=== PATIENT | female | born 1970 | race Caucasian/White ===

== ENCOUNTER 2017-09-30 14:39 | Emergency (ER) | payer OTHER ==
[~2017-09-30] VITALS: Ht 165.1 cm; Wt 110.2 kg
[~2017-09-30 14:39] MED LIST: ASP81EC PO; BLAC540C3 PO; CARV3.1240 PO; FERR325T50 PO; FURO40TA4 PO; HYDR-531 PO; LISI40TA PO; LORA-352 PO; LOSA100T27 PO; METF-489 PO; OME20T PO; OMEG100078 PO; POT10T PO; TIZA4TAB9 PO
[2017-09-30 15:31] LABS: Basophils # (auto) 0.1 uL; Basophils % (auto) 0.4 % (0.0-2.0); Nucleated Red Blood Cells % 0.1 %
[2017-09-30 15:33] LABS: Eosinophils # (auto) 0.4 uL; Eosinophils % (auto) 2.8 % (0.0-7.0); Hematocrit 39.8 % (36.0-46.0); Hemoglobin 13.1 g/dL (12.2-16.2); Lymphocytes # (auto) 2.9 uL; Lymphocytes % (auto) 20.9 % (10.0-50.0); Mean Corpuscular Hemoglobin 27.2 pg (28.0-32.0); Mean Corpuscular Hgb Conc. 32.9 g/dL (32.0-36.0); Mean Corpuscular Volume 82.6 fL (80.0-100.0); Monocytes # (auto) 0.8 uL; Monocytes % (auto) 5.5 % (0.0-12.0); Neutrophils # (auto) 9.8 uL; Neutrophils % (auto) 70.4 % (37.0-80.0); Platelet Count (auto) 365 10^3/uL (140-450); Red Blood Cells 4.81 10^6/uL (4.0-5.20); Red Cell Distribution Width 15.9 % (11.8-14.3); White Blood Cell 13.9 10^3/uL (4.4-10.8)
[2017-09-30 15:42] LABS: Albumin 3.6 g/dL (3.4-5.0); BUN/Creatinine Ratio 22.3; Bilirubin, Total 0.3 mg/dL (0.2-1.0); Potassium 3.2 mmol/L (3.5-5.1); Total Protein 8.2 g/dL (6.4-8.2)
[2017-09-30] MEDS ORDERED: POTASSIUM EFFERVESENT TAB 25 MEQ PO ONE (16:00)
[2017-09-30 18:13] VITALS: BP 151/85
== END 2017-09-30 18:24 | disposition home or self-care (01) ==
LOC: ER 14:39
DX: E87.6 Hypokalemia (principal); N39.0 Urinary tract infection, site not specified; I10 Essential (primary) hypertension; J44.9 Chronic obstructive pulmonary disease, unspecified; E11.9 Type 2 diabetes mellitus without complications; E78.5 Hyperlipidemia, unspecified; E07.9 Disorder of thyroid, unspecified; Z90.49 Acquired absence of other specified parts of digestive tract; Z90.710 Acquired absence of both cervix and uterus; Z87.891 Personal history of nicotine dependence; Z79.82 Long term (current) use of aspirin; Z79.899 Other long term (current) drug therapy
CPT/HCPCS: 36415; 70450; 80053; 81002; 85025

== ENCOUNTER 2018-03-05 15:53 | Emergency (ER) | payer MEDICAID, OTHER ==
[~2018-03-05] VITALS: Ht 167.6 cm; Wt 99.8 kg
[~2018-03-05 15:53] MED LIST changes: +LOSA-49 PO; -LOSA100T27 PO
[2018-03-05 17:08] VITALS: BP 160/96
== END 2018-03-05 17:18 | disposition home or self-care (01) ==
LOC: EDBD 15:53 → ER 16:00
DX: S16.1XXA Strain of muscle, fascia and tendon at neck level, initial encounter (principal); J44.9 Chronic obstructive pulmonary disease, unspecified; E11.9 Type 2 diabetes mellitus without complications; E78.5 Hyperlipidemia, unspecified; I10 Essential (primary) hypertension; E07.9 Disorder of thyroid, unspecified; Z79.82 Long term (current) use of aspirin; Z79.899 Other long term (current) drug therapy; Z90.49 Acquired absence of other specified parts of digestive tract; Z90.710 Acquired absence of both cervix and uterus; V49.59XA Passenger injured in collision with other motor vehicles in traffic accident, initial encounter; Y93.89 Activity, other specified; Y99.8 Other external cause status; Y92.488 Other paved roadways as the place of occurrence of the external cause
CPT/HCPCS: 70450; 72125

== ENCOUNTER 2018-09-10 07:56 | Emergency (ER) | payer MEDICAID ==
[~2018-09-10] VITALS: Ht 165.1 cm; Wt 102.1 kg
[~2018-09-10 07:56] MED LIST changes: +LOSA-39 PO; -LOSA-49 PO
[2018-09-10 08:33] LABS: Basophils # (auto) 0 uL; Eosinophils # (auto) 0.4 uL; Eosinophils % (auto) 4.8 % (0.0-7.0); Monocytes # (auto) 0.4 uL; Nucleated Red Blood Cells % 0.1 %
[2018-09-10 08:34] LABS: Basophils % (auto) 0.4 % (0.0-2.0); Hematocrit 36.3 % (36.0-46.0); Hemoglobin 11.8 g/dL (12.2-16.2); Lymphocytes # (auto) 2.2 uL; Lymphocytes % (auto) 24.9 % (10.0-50.0); Mean Corpuscular Hemoglobin 27.2 pg (28.0-32.0); Mean Corpuscular Hgb Conc. 32.6 g/dL (32.0-36.0); Mean Corpuscular Volume 83.4 fL (80.0-100.0); Monocytes % (auto) 4.4 % (0.0-12.0); Neutrophils # (auto) 5.8 uL; Neutrophils % (auto) 65.5 % (37.0-80.0); Platelet Count (auto) 352 10^3/uL (140-450); Red Blood Cells 4.36 10^6/uL (4.0-5.20); Red Cell Distribution Width 17.3 % (11.8-14.3); White Blood Cell 8.9 10^3/uL (4.4-10.8)
[2018-09-10 08:40] LABS: Albumin 3.4 g/dL (3.4-5.0); Anion Gap 11 (5-15); Blood Urea Nitrogen 8 mg/dL (7-18); Calcium 9.5 mg/dL (8.5-10.1); Carbon Dioxide 34 mmol/L (21-32); Chloride 95 mmol/L (98-107); Glucose 143 mg/dL (74-106); Potassium 3.4 mmol/L (3.5-5.1); Sodium 140 mmol/L (136-145)
[2018-09-10 08:42] LABS: Alanine Aminotransferase 20 U/L (13-56); Aspartate Aminotransferase 12 U/L (15-37); BUN/Creatinine Ratio 9.6; GFR African American 95 mL/min; GFR Non-African American 78 mL/min
[2018-09-10 08:46] LABS: Alkaline Phosphatase 106 U/L (45-117); Bilirubin, Total 0.2 mg/dL (0.2-1.0); Total Protein 7.2 g/dL (6.4-8.2)
[2018-09-10 09:07] LABS: Urine Bacteria FEW /hpf (None Seen); Urine Blood Negative /uL (Negative); Urine Specific Gravity 1.004 (1.001-1.035); Urine WBC 2 /hpf (0 - 5)
[2018-09-10] MEDS ORDERED: SODIUM CHLORIDE 0.9% 1,000 ML IV ONE ×2 (10:10)
[2018-09-10 12:42] VITALS: BP 113/84
[2018-09-10] MEDS ORDERED: HYDROcodone-ACET 7.5/325MG TAB PO ONE (12:45)
[2018-09-10] MEDS ORDERED: POTASSIUM EFFERVESENT TAB 25 MEQ PO ONE (13:00)
== END 2018-09-10 13:45 | disposition home or self-care (01) ==
LOC: ER 07:56
DX: I10 Essential (primary) hypertension (principal); J44.9 Chronic obstructive pulmonary disease, unspecified; E11.9 Type 2 diabetes mellitus without complications; E78.5 Hyperlipidemia, unspecified; E07.9 Disorder of thyroid, unspecified; Z90.49 Acquired absence of other specified parts of digestive tract; Z79.82 Long term (current) use of aspirin; Z79.899 Other long term (current) drug therapy; Z90.710 Acquired absence of both cervix and uterus; Z98.51 Tubal ligation status
CPT/HCPCS: 36415; 70450; 71045; 80053; 81001; 82962; 84484; 85025; 93005; 96360; 96361; 99284; J7030

== ENCOUNTER 2019-02-23 14:28 | Emergency (ER) | payer MEDICAID ==
[~2019-02-23] VITALS: Ht 165.1 cm; Wt 113.4 kg
[2019-02-23 14:50] VITALS: BP 143/95
== END 2019-02-23 15:05 | disposition left against medical advice (07) ==
LOC: ER 14:38
DX: R04.0 Epistaxis (principal); Z53.21 Procedure and treatment not carried out due to patient leaving prior to being seen by health care provider

== ENCOUNTER 2020-05-12 09:54 | Inpatient (IN) | payer MEDICAID ==
[~2020-05-12] VITALS: Ht 162.6 cm; Wt 111.7 kg
[~2020-05-12 09:54] MED LIST changes: -ASP81EC PO; +ASPI-394 PO; -LISI40TA PO; +LISI40TA11 PO
[2020-05-12] MEDS ORDERED: amLODIPine BESYLATE 5 MG TAB PO ONE (10:15)
[2020-05-12 10:42] LABS: Basophils # (auto) 0 10 ^3/uL (0-0.2); Basophils % (auto) 0.2 % (0.0-2.0); Eosinophils # (auto) 0.3 10 ^3/uL (0-0.8); Eosinophils % (auto) 2.4 % (0.0-7.0); Hematocrit 36.4 % (36.0-46.0); Hemoglobin 11.9 g/dL (12.2-16.2); Lymphocytes # (auto) 1.5 10 ^3/uL (0.4-5.4); Lymphocytes % (auto) 11.9 % (10.0-50.0); Mean Corpuscular Hemoglobin 26.8 pg (28.0-32.0); Mean Corpuscular Hgb Conc. 32.7 g/dL (32.0-36.0); Mean Corpuscular Volume 81.8 fL (80.0-100.0); Monocytes # (auto) 0.5 10 ^3/uL (0-1.3); Monocytes % (auto) 3.8 % (0.0-12.0); Neutrophils # (auto) 10.2 10 ^3/uL (1.6-8.6); Neutrophils % (auto) 81.7 % (37.0-80.0); Platelet Count (auto) 457 10^3/uL (140-450); Red Blood Cells 4.45 10^6/uL (4.0-5.20); Red Cell Distribution Width 16.6 % (11.8-14.3); White Blood Cell 12.5 10^3/uL (4.4-10.8)
[2020-05-12 11:07] LABS: Alanine Aminotransferase 27 U/L (13-56); Albumin 3.7 g/dL (3.4-5.0); Anion Gap 6 (5-15); Blood Urea Nitrogen 12 mg/dL (7-18); Calcium 9.7 mg/dL (8.5-10.1); Carbon Dioxide 34 mmol/L (21-32); Chloride 101 mmol/L (98-107); Glucose 152 mg/dL (74-106); Potassium 3.5 mmol/L (3.5-5.1); Sodium 141 mmol/L (136-145)
[2020-05-12 11:12] LABS: Alkaline Phosphatase 106 U/L (45-117); Aspartate Aminotransferase 14 U/L (15-37); Bilirubin, Total 0.2 mg/dL (0.2-1.0); GFR African American 137 mL/min; GFR Non-African American 113 mL/min; Total Protein 8.4 g/dL (6.4-8.2)
[2020-05-12] MEDS ORDERED: HYDROcodone-ACET 10/325MG TAB PO ONE ×2 (11:15)
[2020-05-12] MEDS ORDERED: ONDANSETRON HCL 4 MG/2 ML VIAL IV ONE ×2 (11:15→14:00)
[2020-05-12 11:20] LABS: Urine Bacteria NONE SEEN /hpf (None Seen); Urine Blood Negative /uL (Negative); Urine Specific Gravity 1.016 (1.001-1.035); Urine WBC <1 /hpf (0 - 5)
[2020-05-12] MEDS ORDERED: LABETALOL HCL 5 MG/ML 4ML SYRINGE IV ONE (11:45)
[2020-05-12] MEDS ORDERED: hydrALAZINE HCL 20 MG/ML VL IV ONE (13:00)
[2020-05-12] MEDS ORDERED: traMADol HCL 50 MG TAB PO ONE (14:00)
[2020-05-12] MEDS ORDERED: PROMETHAZINE HCL 25 MG/ML 1ML IV ONE (14:45)
[2020-05-12] MEDS ORDERED: HYDROmorphone HCL 2 MG/ML VL IV ONE (14:45)
[2020-05-12] MEDS ORDERED: MORPHINE SULF INJ 2 MG/ML SYRINGE 1ML IV PRN (15:15)
[2020-05-12] MEDS ORDERED: DEXTROSE (50%) 50ML SYRG IV PRN (15:15)
[2020-05-12] MEDS ORDERED: NITROGLYCERIN 0.4 MG SL TAB SL PRN (15:15)
[2020-05-12] MEDS ORDERED: hydrALAZINE HCL 20 MG/ML VL IV PRN (15:15)
[2020-05-12] MEDS ORDERED: ENALAPRILAT 1.25 MG/ML-1ML VIAL IV PRN (16:30)
[2020-05-12] MEDS ORDERED: CARVEDILOL 3.125 MG TAB PO ONE (16:30)
[2020-05-12] MEDS: ACCU-CHEK COMFORT CURVE STRIP VI SCH ×2 (17:14→21:43)
[2020-05-12] MEDS: InsuLIN REG 1unit/0.01ml Soln (100units/ml) SC SCH ×2 (17:23→21:47)
[2020-05-12] MEDS ORDERED: HYDROcodone-ACET 10/325MG TAB PO SCH (18:00)
[2020-05-12] MEDS ORDERED: IBUPROFEN 600 MG TAB PO ONE (18:30)
[2020-05-12] MEDS ORDERED: MORPHINE SULF INJ 2 MG/ML SYRINGE 1ML IV ONE (18:30)
[2020-05-12] MEDS: CARVEDILOL 3.125 MG TAB PO SCH (21:00)
[2020-05-12] MEDS ORDERED: ONDA-144 PO (21:27)
[2020-05-12] MEDS ORDERED: HYDR25TA4 PO (21:27)
[2020-05-12] MEDS ORDERED: LOSA25TA38 PO (21:27)
[2020-05-12] MEDS ORDERED: CLON0.1T PO (21:27)
[2020-05-12] MEDS ORDERED: EMPA1TAB PO (21:27)
[2020-05-12] MEDS ORDERED: TIOT1AER IN (21:27)
[2020-05-12] MEDS ORDERED: PERCOT PO (21:27)
[2020-05-12] MEDS ORDERED: LEVO175T66 PO (21:27)
[2020-05-12] MEDS ORDERED: ALBU2TAB4 IN (21:27)
[2020-05-12] MEDS ORDERED: PAR20T PO (21:27)
[2020-05-12] MEDS ORDERED: ATO40T PO (21:27)
[2020-05-12] MEDS ORDERED: FLU220IH INH (21:27)
[2020-05-12 22:05] VITALS: BP 145/96
[2020-05-12] MEDS: cloNIDine HCL 0.1 MG TAB PO SCH (23:26)
[2020-05-12] MEDS: HYDROcodone-ACET 10/325MG TAB PO PRN (23:27)
[2020-05-12] MEDS: ONDANSETRON HCL 4 MG/2 ML VIAL IV PRN (23:27)
[2020-05-13 04:14] VITALS: BP 152/90
[2020-05-13 05:00] VITALS: BP 152/90
[2020-05-13] MEDS: ACCU-CHEK COMFORT CURVE STRIP VI SCH ×3 (06:28→17:01)
[2020-05-13] MEDS: ONDANSETRON HCL 4 MG/2 ML VIAL IV PRN ×2 (06:29→15:32)
[2020-05-13] MEDS: HYDROcodone-ACET 10/325MG TAB PO PRN ×2 (06:29→15:32)
[2020-05-13] MEDS: InsuLIN REG 1unit/0.01ml Soln (100units/ml) SC SCH ×3 (06:33→17:11)
[2020-05-13] MEDS: cloNIDine HCL 0.1 MG TAB PO SCH (08:44)
[2020-05-13 08:45] VITALS: BP 171/103
[2020-05-13] MEDS: CARVEDILOL 3.125 MG TAB PO SCH (08:46)
[2020-05-13] MEDS ORDERED: IBUPROFEN 800 MG TAB PO ONE (09:45)
[2020-05-13] MEDS ORDERED: MORPHINE SULF INJ 2 MG/ML SYRINGE 1ML IV ONE (09:45)
[2020-05-13] MEDS ORDERED: ATORVASTATIN 20 MG TAB PO SCH (10:00)
[2020-05-13] MEDS ORDERED: FERROUS SULFATE 325 MG TAB PO SCH (10:00)
[2020-05-13] MEDS ORDERED: LOSARTAN POTASSIUM 50 MG TAB PO SCH (10:00)
[2020-05-13] MEDS ORDERED: ASPirin 81 mg TAB PO SCH (10:00)
[2020-05-13] MEDS ORDERED: amLODIPine BESYLATE 5 MG TAB PO SCH (10:00)
[2020-05-13 11:54] VITALS: BP_SYST 145; BP_SYST 151; BP_DIAS 96; BP_DIAS 99
[2020-05-13 15:35] VITALS: BP 119/73
[2020-05-13] MEDS ORDERED: LEVOTHYROXINE SODIUM 50 MCG TAB PO SCH (18:00)
[2020-05-13] MEDS ORDERED: AML5T PO (18:07)
[2020-05-13] MEDS ORDERED: IBUP800T26 PO (18:07)
[2020-05-13] MEDS ORDERED: CARV6.25 PO (18:07)
[2020-05-13 18:16] VITALS: BP 147/95
== END 2020-05-13 19:20 | disposition home or self-care (01) | DRG 199 ==
LOC: ER 09:54 → EDBD 09:54 → TELE 15:35 → TELE-WESTW 20:20 → TELE-EAST 05-13 03:35
PROVIDERS: ADMIT Internal Medicine; ATTEND Internal Medicine
DX: I16.0 Hypertensive urgency (principal); U07.1 COVID-19; I10 Essential (primary) hypertension; E78.5 Hyperlipidemia, unspecified; J44.9 Chronic obstructive pulmonary disease, unspecified; F32.9 Major depressive disorder, single episode, unspecified; K21.9 Gastro-esophageal reflux disease without esophagitis; E03.9 Hypothyroidism, unspecified; E11.9 Type 2 diabetes mellitus without complications; D50.9 Iron deficiency anemia, unspecified; Z82.49 Family history of ischemic heart disease and other diseases of the circulatory system; Z79.4 Long term (current) use of insulin; Z90.710 Acquired absence of both cervix and uterus; Z83.3 Family history of diabetes mellitus; Z90.49 Acquired absence of other specified parts of digestive tract; Z98.51 Tubal ligation status
CPT/HCPCS: 36415; 70450; 71045; 80053; 81001; 82962; 84484; 85025; 87426; 93005; 96374; 96375; 96376; 99291; G0378; J1815; J2405

== ENCOUNTER 2021-07-09 07:06 | Emergency (ER) | payer MEDICAID ==
[~2021-07-09] VITALS: Ht 165.1 cm; Wt 113.4 kg
[2021-07-09 07:06] VITALS: BP 138/81
[~2021-07-09 07:06] MED LIST changes: +ALBU2TAB4 IN; +AML5T PO; +ATO40T PO; -BLAC540C3 PO; -CARV3.1240 PO; +CARV6.25 PO; +CLON0.1T PO; +EMPA1TAB PO; +FLU220IH INH; +IBUP800T26 PO; +LEVO175T66 PO; -LISI40TA11 PO; -LORA-352 PO; +LORA10TA6 PO; +ONDA-144 PO; +PAR20T PO; +PERCOT PO; +TIOT1AER IN
[2021-07-09] MEDS ORDERED: IPRATROPIUM BROM 0.5 MG/2.5ML INH SOL NEB ONE ×2 (07:15→07:30)
[2021-07-09] MEDS ORDERED: ALBUTEROL SULF 2.5 MG/0.5ML(0.5%) NEB SOLN NEB ONE ×2 (07:15→07:30)
[2021-07-09] MEDS ORDERED: methylPREDNISolone SOD SUCC 125 MG/2 ML VL IM ONE (07:30)
== END 2021-07-09 08:28 | disposition home or self-care (01) ==
LOC: ER 07:06
DX: J45.901 Unspecified asthma with (acute) exacerbation (principal); Z87.891 Personal history of nicotine dependence
CPT/HCPCS: 94640; 96372; 99283; J2930; J7644

== ENCOUNTER 2022-01-31 18:24 | Inpatient (IN) | payer MEDICAID ==
[~2022-01-31] VITALS: Ht 165.1 cm; Wt 93.0 kg
[2022-01-31] MEDS ORDERED: ALBUTEROL SULF 2.5 MG/0.5ML(0.5%) NEB SOLN NEB ONE (20:30)
[2022-01-31] MEDS ORDERED: OSELTAMIVIR 75 MG CAP PO ONE (20:30)
[2022-01-31] MEDS ORDERED: DexAMETHasone SOD PHOS 10MG/1ML VIAL INJ IV ONE (20:30)
[2022-01-31] MEDS ORDERED: LACTATED RINGER'S 1,000 ML IV ONE (20:30)
[2022-01-31] MEDS ORDERED: AZITHROMYCIN 500MG/ 250ML 250 ML IV ONE (20:30)
[2022-01-31] MEDS ORDERED: ALBUTEROL MEDNEB 2.5 mg/3ml NEB ONE ×2 (20:41)
[2022-01-31 21:13] LABS: Basophils # (auto) 0 10 ^3/uL (0-0.2); Eosinophils # (auto) 0.1 10 ^3/uL (0-0.8); Eosinophils % (auto) 0.8 % (0.0-7.0); Hemoglobin 11.9 g/dL (12.2-16.2); Lymphocytes # (auto) 0.9 10 ^3/uL (0.4-5.4); Red Cell Distribution Width 16.8 % (11.8-14.3)
[2022-01-31 21:14] LABS: Basophils % (auto) 0.4 % (0.0-2.0); Hematocrit 36.8 % (36.0-46.0); Lymphocytes % (auto) 12.7 % (10.0-50.0); Mean Corpuscular Hemoglobin 26.6 pg (28.0-32.0); Mean Corpuscular Hgb Conc. 32.3 g/dL (32.0-36.0); Mean Corpuscular Volume 82.3 fL (80.0-100.0); Monocytes # (auto) 0.7 10 ^3/uL (0-1.3); Monocytes % (auto) 9.3 % (0.0-12.0); Neutrophils # (auto) 5.7 10 ^3/uL (1.6-8.6); Neutrophils % (auto) 76.8 % (37.0-80.0); Red Blood Cells 4.48 10^6/uL (4.0-5.20); White Blood Cell 7.4 10^3/uL (4.4-10.8)
[2022-01-31 21:30] LABS: INR 1.02 (0.9-1.15); Potassium 4.3 mmol/L (3.5-5.1)
[2022-01-31 21:42] LABS: Albumin 3.7 g/dL (3.4-5.0); BUN/Creatinine Ratio 17.9; Bilirubin, Total 0.3 mg/dL (0.2-1.0); Calcium 9.4 mg/dL (8.5-10.1); Magnesium 2.1 mg/dL (1.6-2.6); Total Protein 7.2 g/dL (6.4-8.2)
[2022-01-31 22:39] LABS: Urine Blood Negative /uL (Negative); Urine Specific Gravity 1.014 (1.001-1.035)
[2022-01-31 23:03] LABS: Urine Bacteria FEW /hpf (None Seen)
[2022-02-01] VITALS: BP 129/69
[2022-02-01] MEDS ORDERED: ONDANSETRON HCL 4 MG/2 ML VIAL IV PRN (00:15)
[2022-02-01] MEDS ORDERED: TEMAZEPAM 15 MG CAP PO PRN (00:15)
[2022-02-01] MEDS ORDERED: ACETAMINOPHEN 500 MG TAB PO PRN (00:15)
[2022-02-01] MEDS ORDERED: ALBUTEROL SULF HFA 90MCG INH 200DOSE IN PRN (00:15)
[2022-02-01] MEDS ORDERED: DOCUSATE SOD 100 MG CAP PO PRN (00:15)
[2022-02-01] MEDS: DOXYCYCLINE 100 MG TAB/CAP PO SCH ×3 (01:48→22:17)
[2022-02-01] MEDS: SODIUM CHLORIDE 0.9% 1,000 ML IV SCH ×2 (01:48→17:13)
[2022-02-01 05:36] LABS: Basophils # (auto) 0 10 ^3/uL (0-0.2); Eosinophils # (auto) 0 10 ^3/uL (0-0.8); Eosinophils % (auto) 0.1 % (0.0-7.0); Hematocrit 37.9 % (36.0-46.0); Lymphocytes # (auto) 0.7 10 ^3/uL (0.4-5.4); Monocytes # (auto) 0.2 10 ^3/uL (0-1.3); Nucleated Red Blood Cells % 0.1 %
[2022-02-01 05:40] LABS: Basophils % (auto) 0.2 % (0.0-2.0); Lymphocytes % (auto) 11.5 % (10.0-50.0); Mean Corpuscular Hemoglobin 26.1 pg (28.0-32.0); Mean Corpuscular Hgb Conc. 31.7 g/dL (32.0-36.0); Mean Corpuscular Volume 82.3 fL (80.0-100.0); Monocytes % (auto) 3.3 % (0.0-12.0); Neutrophils # (auto) 5.4 10 ^3/uL (1.6-8.6); Neutrophils % (auto) 84.9 % (37.0-80.0); Red Cell Distribution Width 16.7 % (11.8-14.3); White Blood Cell 6.4 10^3/uL (4.4-10.8)
[2022-02-01 05:58] LABS: Albumin 3.4 g/dL (3.4-5.0); Calcium 9.6 mg/dL (8.5-10.1); Magnesium 1.9 mg/dL (1.6-2.6); Potassium 4.8 mmol/L (3.5-5.1)
[2022-02-01 06:03] LABS: BUN/Creatinine Ratio 14.8; Bilirubin, Total 0.3 mg/dL (0.2-1.0); Total Protein 7.9 g/dL (6.4-8.2)
[2022-02-01] MEDS: OXYCODONE W/ ACETAMINOPHEN 5/325MG TABLET PO PRN ×3 (06:09→22:19)
[2022-02-01] MEDS: ZINC SULFATE 220mg CAP or TAB PO SCH (10:57)
[2022-02-01] MEDS: ASCORBIC ACID 1,000 MG TAB PO SCH (10:57)
[2022-02-01] MEDS: CHOLECALCIFEROL (VITD3) 2,000 UNIT CAP/TAB PO SCH (10:57)
[2022-02-01] MEDS: ENOXAPARIN SOD 40 MG/0.4 ML SYRINGE SC SCH (10:58)
[2022-02-01] MEDS: OSELTAMIVIR 75 MG CAP PO SCH (11:18)
[2022-02-01] MEDS ORDERED: REMDESIVIR PER PHARMACY 0 ML IV SCH (13:15)
[2022-02-01] MEDS ORDERED: REMDESIVIR 200 MG in NS 210ml LOADING DOSE ADULT IV ONE (15:00)
[2022-02-01] MEDS ORDERED: AZITHROMYCIN 500MG/ 250ML 250 ML IV SCH (22:00)
[2022-02-01] MEDS ORDERED: DexAMETHasone SOD PHOS 10MG/1ML VIAL INJ IV SCH (22:00)
[2022-02-01 22:59] VITALS: BP 154/106
[2022-02-01 23:04] VITALS: BP 154/83
[2022-02-01] MEDS ORDERED: SEMA7TAB PO (23:47)
[2022-02-01] MEDS ORDERED: GABA300C10 PO (23:47)
[2022-02-02] VITALS (8 sets, daily range): BP systolic 134–169; BP diastolic 97–105
[2022-02-02] MEDS: FAMOTIDINE (10MG/ML) 2ML VL IV SCH ×3 (00:07→22:01)
[2022-02-02 06:04] LABS: Potassium 4.2 mmol/L (3.5-5.1)
[2022-02-02 06:13] LABS: Albumin 3.4 g/dL (3.4-5.0); BUN/Creatinine Ratio 30.8; Bilirubin, Total 0.2 mg/dL (0.2-1.0); Calcium 9.5 mg/dL (8.5-10.1); Total Protein 7.1 g/dL (6.4-8.2)
[2022-02-02] MEDS: OXYCODONE W/ ACETAMINOPHEN 5/325MG TABLET PO PRN ×3 (08:53→22:03)
[2022-02-02] MEDS: SODIUM CHLORIDE 0.9% 1,000 ML IV SCH (08:54)
[2022-02-02] MEDS: OSELTAMIVIR 75 MG CAP PO SCH (09:32)
[2022-02-02] MEDS: ASCORBIC ACID 1,000 MG TAB PO SCH (09:32)
[2022-02-02] MEDS: DOXYCYCLINE 100 MG TAB/CAP PO SCH ×2 (09:33→22:02)
[2022-02-02] MEDS: CHOLECALCIFEROL (VITD3) 2,000 UNIT CAP/TAB PO SCH (09:33)
[2022-02-02] MEDS: ENOXAPARIN SOD 40 MG/0.4 ML SYRINGE SC SCH (09:33)
[2022-02-02] MEDS: ZINC SULFATE 220mg CAP or TAB PO SCH (09:33)
[2022-02-02] MEDS ORDERED: REMDESIVIR 100mg 100 MG in SODIUM CHL 0.9% 230 ML IV SCH (15:00)
[2022-02-02] MEDS: cloNIDine HCL 0.1 MG TAB PO SCH (22:02)
[2022-02-03] MEDS: SODIUM CHLORIDE 0.9% 1,000 ML IV SCH (02:15)
[2022-02-03 05:00] VITALS: BP 118/73
[2022-02-03 08:05] VITALS: BP 153/88
[2022-02-03] MEDS: OXYCODONE W/ ACETAMINOPHEN 5/325MG TABLET PO PRN (08:08)
[2022-02-03 08:10] LABS: Potassium 4.9 mmol/L (3.5-5.1)
[2022-02-03 08:22] LABS: Albumin 3.1 g/dL (3.4-5.0); BUN/Creatinine Ratio 26.5; Calcium 9.7 mg/dL (8.5-10.1); Total Protein 6.6 g/dL (6.4-8.2)
[2022-02-03 09:00] VITALS: BP 157/88
[2022-02-03] MEDS: CHOLECALCIFEROL (VITD3) 2,000 UNIT CAP/TAB PO SCH (09:43)
[2022-02-03] MEDS: ASCORBIC ACID 1,000 MG TAB PO SCH (09:43)
[2022-02-03] MEDS: DOXYCYCLINE 100 MG TAB/CAP PO SCH (09:43)
[2022-02-03] MEDS: ZINC SULFATE 220mg CAP or TAB PO SCH (09:43)
[2022-02-03] MEDS: FAMOTIDINE (10MG/ML) 2ML VL IV SCH ×2 (09:43→09:48)
[2022-02-03] MEDS: OSELTAMIVIR 75 MG CAP PO SCH (09:44)
[2022-02-03] MEDS: ENOXAPARIN SOD 40 MG/0.4 ML SYRINGE SC SCH (09:44)
[2022-02-03] MEDS: cloNIDine HCL 0.1 MG TAB PO SCH (09:44)
[2022-02-03] MEDS ORDERED: TAMIFLU PO (11:36)
[2022-02-03] MEDS ORDERED: DOXY-332 PO (11:36)
[2022-02-03 12:00] VITALS: BP 153/88
[2022-02-03 13:00] VITALS: BP 129/88
== END 2022-02-03 13:11 | disposition home or self-care (01) | DRG 137 ==
LOC: ER 18:27 → TELE 02-01 00:15 → TELE-WESTW 02-01 21:30
PROVIDERS: ADMIT Hospitalist; ATTEND Internal Medicine
PROC: XW033E5 Introduction of Remdesivir Anti-infective into Peripheral Vein, Percutaneous Approach, New Technology Group 5 (ICD-10-PCS; principal; 2022-02-01)
DX: U07.1 COVID-19 (principal); J96.21 Acute and chronic respiratory failure with hypoxia; J12.82 Pneumonia due to coronavirus disease 2019; J10.08 Influenza due to other identified influenza virus with other specified pneumonia; I10 Essential (primary) hypertension; E78.5 Hyperlipidemia, unspecified; J10.1 Influenza due to other identified influenza virus with other respiratory manifestations; E66.01 Morbid (severe) obesity due to excess calories; E11.9 Type 2 diabetes mellitus without complications; J44.0 Chronic obstructive pulmonary disease with (acute) lower respiratory infection; J44.1 Chronic obstructive pulmonary disease with (acute) exacerbation; Z91.010 Allergy to peanuts; Z91.012 Allergy to eggs; Z91.018 Allergy to other foods; Z68.34 Body mass index [BMI] 34.0-34.9, adult; Z90.710 Acquired absence of both cervix and uterus; Z80.41 Family history of malignant neoplasm of ovary; Z82.49 Family history of ischemic heart disease and other diseases of the circulatory system; Z83.3 Family history of diabetes mellitus; Z98.51 Tubal ligation status; Z90.49 Acquired absence of other specified parts of digestive tract; Z23 Encounter for immunization
CPT/HCPCS: 36415; 71046; 80053; 81001; 83690; 83735; 84484; 85025; 85610; 85730; 87426; 87804; 93005; 94640; 96365; 96375; G0378; J1100; J2405; J3490